=== PATIENT | male | born 1975 | race African-American/Black ===

== ENCOUNTER 2020-05-07 17:38 | Emergency (ER) | payer OTHER ==
[~2020-05-07] VITALS: Ht 180.3 cm; Wt 81.8 kg
[~2020-05-07 17:38] MED LIST: INHALER IH
[2020-05-07] MEDS ORDERED: GuaiFENesin SR 600 MG ER TABLET PO ONE (19:15)
[2020-05-07] MEDS ORDERED: IBUPROFEN 400 MG TABLET PO ONE (19:15)
[2020-05-07] MEDS ORDERED: OXYMETAZOLINE HCL 0.05% 15 ML NASAL SPRAY NASAL ONE (19:15)
[2020-05-07] MEDS ORDERED: ACETAMINOPHEN 325 MG TABLET PO ONE (19:15)
[2020-05-07 19:58] VITALS: BP 135/75
== END 2020-05-07 21:14 | disposition home or self-care (01) ==
LOC: EMS 17:38
DX: J32.9 Chronic sinusitis, unspecified (principal); J45.909 Unspecified asthma, uncomplicated
CPT/HCPCS: Z7502; Z7610